=== PATIENT | female | born 1965 | race Caucasian/White ===

== ENCOUNTER → 2018-02-05 | Outpatient (CLI) | payer MEDICARE, MEDICAID ==
[~2018-02-05] MED LIST: BENADRYL25 MG PO; BISACODYL SUPP10 MG RECTAL; CLEOCIN HCL150 MG PO; CYMBALTA30 MG; FENTANYL PATCH75 MCG; FLEXERIL; IBUPROFEN 600600 M1 PO; IBUPROFEN 800800 M1 PO; MEDROLDOSEPACK PO; MIRALAX255 GM PO; MOBIC15 MG PO; NORCO 5-325 TA1 EACH PO; OMEPRAZOLE40 MG; OXYCONTIN10 MG; PENICILLIN V P500 MG PO; PEPCID20 MG PO; PREMARIN0.9 M1 PO; VICODIN ES TAB1 EACH; ZANAFLEX4 MG PO; ZOFRAN ODT4 MG PO; ZOFRAN8 MG PO
[2018-02-05 17:24] LABS: ABSOLUTE EOSINOPHILS 0.1 thou/uL (0.0-0.7); ABSOLUTE LYMPHOCYTES 2.4 thou/uL (0.8-5.3); ABSOLUTE MONOCYTES 0.3 thou/uL (0.0-1.2); ABSOLUTE NEUTROPHILS 4.4 thou/uL (1.6-8.1); BASOPHILS 0.5 %; EOSINOPHILS 1.1 %; HEMATOCRIT 37.6 % (37.0-47.0); HEMOGLOBIN 12.7 gm/dL (12.0-15.0); LYMPHOCYTES 33.5 %; MCH 28.6 pg (26.0-34.0); MCHC 33.7 g/dL (28.0-37.0); MCV 84.9 fL (80.0-100.0); MONOCYTES 4.7 %; MPV 6.8 fl. (7.2-11.1); NUCLEATED RBCS 0 /100WBC; PLATELET COUNT* 405 thou/uL (150-400); POLYS 60.2 %; RBC 4.43 mil/uL (4.20-5.00); WBC 7.2 thou/uL (4.0-11.0)
[2018-02-05 17:32] LABS: ALBUMIN 3.8 g/dL (3.4-5.0); CALCIUM 10.1 mg/dL (8.5-10.1); CREATININE 0.9 mg/dL (0.6-1.3); POTASSIUM 4.1 mmol/L (3.5-5.1); TOTAL BILIRUBIN 0.6 mg/dL (<0.1-1.0); TOTAL PROTEIN 7.4 g/dL (6.4-8.2)
== END ==
LOC: M.LAB 17:03
PROVIDERS: Internal Medicine
DX: K76.0 Fatty (change of) liver, not elsewhere classified (principal); J98.11 Atelectasis; R35.0 Frequency of micturition; Z90.49 Acquired absence of other specified parts of digestive tract

== ENCOUNTER → 2018-11-29 | Outpatient (CLI) | payer MEDICARE, MEDICAID | LOC: M.MRI 11-16 11:47 | DX: S83.241A Other tear of medial meniscus, current injury, right knee, initial encounter (principal); S83.281A Other tear of lateral meniscus, current injury, right knee, initial encounter; S83.242A Other tear of medial meniscus, current injury, left knee, initial encounter; S83.282A Other tear of lateral meniscus, current injury, left knee, initial encounter; M22.41 Chondromalacia patellae, right knee; M22.42 Chondromalacia patellae, left knee; K21.9 Gastro-esophageal reflux disease without esophagitis; M51.24 Other intervertebral disc displacement, thoracic region; G89.29 Other chronic pain; M54.42 Lumbago with sciatica, left side; M54.41 Lumbago with sciatica, right side; X58.XXXA Exposure to other specified factors, initial encounter; Y93.89 Activity, other specified; Y92.89 Other specified places as the place of occurrence of the external cause; Y99.8 Other external cause status ==

== ENCOUNTER → 2019-02-22 | Outpatient (CLI) | payer MEDICARE, MEDICAID | LOC: M.RAD 12:14 | DX: M47.26 Other spondylosis with radiculopathy, lumbar region (principal); M47.22 Other spondylosis with radiculopathy, cervical region; M51.25 Other intervertebral disc displacement, thoracolumbar region; M43.27 Fusion of spine, lumbosacral region; M12.88 Other specific arthropathies, not elsewhere classified, other specified site; M54.42 Lumbago with sciatica, left side; G89.29 Other chronic pain; M25.561 Pain in right knee; M25.562 Pain in left knee; K21.9 Gastro-esophageal reflux disease without esophagitis; Z96.9 Presence of functional implant, unspecified; Z98.1 Arthrodesis status; Z87.828 Personal history of other (healed) physical injury and trauma ==

== ENCOUNTER 2019-03-05 01:35 | Emergency (ER) | payer MEDICARE, MEDICAID ==
[~2019-03-05] VITALS: Ht 157.5 cm; Wt 68.0 kg
[2019-03-05 02:01] LABS: ABSOLUTE BASOPHILS 0.1 thou/uL (0.0-0.2); ABSOLUTE EOSINOPHILS 0.1 thou/uL (0.0-0.7); ABSOLUTE LYMPHOCYTES 2.8 thou/uL (0.8-5.3); ABSOLUTE MONOCYTES 0.5 thou/uL (0.0-1.2); ABSOLUTE NEUTROPHILS 6.2 thou/uL (1.6-8.1); BASOPHILS 0.6 %; EOSINOPHILS 0.6 %; HEMOGLOBIN 12.4 gm/dL (12.0-15.0); MCH 29.7 pg (26.0-34.0); MCHC 34.4 g/dL (28.0-37.0); MCV 86.5 fL (80.0-100.0); MONOCYTES 5.1 %; NUCLEATED RBCS 0 /100WBC; PLATELET COUNT* 372 thou/uL (150-400); POLYS 64.7 %; RBC 4.16 mil/uL (4.20-5.00); RDW-CV 13.8 % (10.5-14.5); WBC 9.6 thou/uL (4.0-11.0)
[2019-03-05 02:20] LABS: APTT 28.7 Seconds (25.0-31.3); PROTIME 9.9 Seconds (9.20-11.50)
[2019-03-05 02:25] LABS: ALBUMIN 3.9 g/dL (3.4-5.0); ALKALINE PHOSPHATASE 92 U/L (46-116); ANION GAP 10 mmol/L (7-16); BUN 11 mg/dL (7-18); CALCIUM 9.9 mg/dL (8.5-10.1); CHLORIDE 109 mmol/L (98-107); CO2 25 mmol/L (21-32); CREATININE 0.9 mg/dL (0.6-1.3); GLUCOSE 110 mg/dL (70-99); LIPASE 107 U/L (73-393); POTASSIUM 3.9 mmol/L (3.5-5.1); SGOT 18 U/L (15-37); SGPT 16 U/L (30-65); SODIUM 144 mmol/L (136-145); TOTAL BILIRUBIN 0.6 mg/dL (<0.1-1.0); TROPONIN-I LEVEL <0.06 ng/mL (<0.06)
[2019-03-05 02:29] LABS: URINE BILIRUBIN NEGATIVE (Negative); URINE BLOOD NEGATIVE (Negative); URINE CLARITY CLEAR; URINE COLOR YELLOW; URINE GLUCOSE-RANDOM NEGATIVE (Negative); URINE KETONES TRACE (Negative); URINE LEUKOCYTES-REFLEX NEGATIVE (Negative); URINE NITRITE-REFLEX NEGATIVE (Negative); URINE PROTEIN NEGATIVE (Negative); URINE SPECIFIC GRAVITY 1.025 (1.005-1.030); URINE UROBILINOGEN 0.2 E.U./dl (0.2-1.0)
[2019-03-05 02:35] LABS: AMP/METHAMP Negative (Negative); BARBITURATES Negative (Negative); BENZODIAZEPINES POSITIVE (Negative); COCAINE Negative (Negative); METHADONE Negative (Negative); OPIATES Negative (Negative); PCP Negative (Negative); THC Negative (Negative)
[2019-03-05 03:05] VITALS: BP 139/79
--- NOTE | 2019-03-05 12:32 | EKG ---
[place] [address] ELECTROCARDIOGRAM REPORT Name: ALEX ROMANOCY HADLEY Room: [place]#: [id number] Admission: 03/05/19 Attend Phys: Discharge: 03/05/19 Date of : 69 Report #: [id number] THIS REPORT FOR: //name// [facility] ED Test Date: 2019-03-05 Test Time: 01:40:16 Pat Name: NATALIE ROMANO Department: Room: Gender: F Zipper Measurer: Verna REDMAN : 1965 Requested By: Meenu Cheatham Order Number: [id number] MD: Aries Limon Measurements Intervals [place] Rate: 81 P: 50 NH: 196 QRS: 42 QRSD: 88 T: 56 QT: 381 QTc: 443 Interpretive Statements Sinus rhythm Probable anteroseptal infarct, old Baseline wander in lead(s) V1 No previous ECG available for comparison Electronically Signed On 03-05-2019 12:32:18 CDT by Aries Limon [email or web address] <ELECTRONICALLY SIGNED> By: Aries Limon MD, [facility] 03/05/19 1232 [id number] Aries Limon MD, [facility] /EPI
== END 2019-03-05 03:05 | disposition home or self-care (01) ==
LOC: M.ERS 01:35
PROVIDERS: Personal Emergency Response Attendant
DX: M79.18 Myalgia, other site (principal); F32.9 Major depressive disorder, single episode, unspecified; Z90.710 Acquired absence of both cervix and uterus; Z90.49 Acquired absence of other specified parts of digestive tract

== ENCOUNTER → 2019-08-10 | Outpatient (CLI) | payer MEDICARE, MEDICAID | LOC: M.RAD 14:09 | DX: Z12.31 Encounter for screening mammogram for malignant neoplasm of breast (principal) ==

== ENCOUNTER → 2020-07-03 | Outpatient (CLI) | payer MEDICARE, MEDICAID | LOC: M.MRI 05-14 09:52 | PROVIDERS: ATTEND Internal Medicine | DX: M51.84 Other intervertebral disc disorders, thoracic region (principal) ==

== ENCOUNTER → 2020-09-05 | Outpatient (CLI) | payer MEDICARE, MEDICAID | LOC: M.ULTRA 08-30 13:00 | PROVIDERS: ATTEND Internal Medicine | DX: I73.9 Peripheral vascular disease, unspecified (principal) ==

== ENCOUNTER → 2020-09-19 | Outpatient (CLI) | payer MEDICARE, MEDICAID | LOC: M.RAD 12:24 | PROVIDERS: ATTEND Internal Medicine | DX: M17.0 Bilateral primary osteoarthritis of knee (principal) ==

== ENCOUNTER 2021-03-24 03:14 | Emergency (ER) | payer MEDICARE, MEDICAID ==
[~2021-03-24] VITALS: Ht 167.6 cm; Wt 64.4 kg
[2021-03-24 04:08] LABS: CALCIUM 9.3 mg/dL (8.5-10.1); POTASSIUM 3.6 mmol/L (3.5-5.1)
[2021-03-24 04:12] LABS: TOTAL BILIRUBIN 0.7 mg/dL (<0.1-1.0); TOTAL PROTEIN 7.2 g/dL (6.4-8.2)
[2021-03-24 04:13] LABS: ABSOLUTE LYMPHOCYTES 2.8 thou/uL (0.8-5.3); ABSOLUTE MONOCYTES 0.7 thou/uL (0.0-1.2); ABSOLUTE NEUTROPHILS 6.7 thou/uL (1.6-8.1); BASOPHILS 0.4 %; EOSINOPHILS 0.4 %; HEMATOCRIT 38.9 % (37.0-47.0); HEMOGLOBIN 12.6 gm/dL (12.0-15.0); LYMPHOCYTES 27.4 %; MCHC 32.3 g/dL (28.0-37.0); MCV 92.8 fL (80.0-100.0); MONOCYTES 6.8 %; MPV 6.1 fl. (7.2-11.1); NUCLEATED RBCS 0 /100WBC; PLATELET COUNT* 348 thou/uL (150-400); RBC 4.19 mil/uL (4.20-5.00); RDW-CV 13.8 % (10.5-14.5); WBC 10.3 thou/uL (4.0-11.0)
[2021-03-24 04:34] VITALS: BP 118/67
== END 2021-03-24 04:34 | disposition home or self-care (01) ==
LOC: M.ERS 03:14
PROVIDERS: Emergency Medicine
DX: F10.920 Alcohol use, unspecified with intoxication, uncomplicated (principal); E87.1 Hypo-osmolality and hyponatremia; F32.9 Major depressive disorder, single episode, unspecified; Z90.711 Acquired absence of uterus with remaining cervical stump; Z90.49 Acquired absence of other specified parts of digestive tract; Z79.899 Other long term (current) drug therapy; Y90.8 Blood alcohol level of 240 mg/100 ml or more

== ENCOUNTER → 2021-11-15 | Outpatient (CLI) | payer MEDICARE, MEDICAID | LOC: M.LAB 15:12 | PROVIDERS: ATTEND Internal Medicine Gastroenterology | DX: Z01.812 Encounter for preprocedural laboratory examination (principal); Z20.822 Contact with and (suspected) exposure to COVID-19 ==

== ENCOUNTER → 2021-12-05 | Outpatient (CLI) | payer MEDICARE, MEDICAID | LOC: M.RAD 09:09 | PROVIDERS: ATTEND Registered Nurse Diabetes Educator | DX: Z12.31 Encounter for screening mammogram for malignant neoplasm of breast (principal) ==